=== PATIENT | male | born 1985 | race Caucasian/White ===

== ENCOUNTER 2016-08-15 17:06 | Emergency (ER) ==
[2016-08-15 17:16] VITALS: BP 143/106
[2016-08-15] MEDS ORDERED: NORCO-5 PO ONE (17:33)
[2016-08-15] MEDS ORDERED: ZOFRAN ODT PO ONE (17:33)
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
== END 2016-08-15 18:55 | disposition home or self-care (01) ==
LOC: ED 17:06
DX: S13.4XXA Sprain of ligaments of cervical spine, initial encounter (principal); M54.2 Cervicalgia; M25.532 Pain in left wrist; M25.531 Pain in right wrist; M79.1 Myalgia; Z79.899 Other long term (current) drug therapy; V89.2XXA Person injured in unspecified motor-vehicle accident, traffic, initial encounter
CPT/HCPCS: 99283